=== PATIENT | female | born 1940 | race Caucasian/White ===

== ENCOUNTER 2018-01-27 12:59 | Outpatient (CLI) | payer MEDICARE, OTHER | END 2018-01-27 13:00 | disposition home or self-care (01) | LOC: BICRAD 12:59 | PROVIDERS: ATTEND Internal Medicine | DX: M54.5 Low back pain (principal); M47.896 Other spondylosis, lumbar region; M41.86 Other forms of scoliosis, lumbar region | CPT/HCPCS: 72100 ==

== ENCOUNTER 2018-10-23 15:21 | Outpatient (CLI) | payer MEDICARE, OTHER ==
--- NOTE | 2018-10-23 16:45 | RAD ---
RADIOGRAPH RIGHT KNEE 3 VIEWS: 10/23/18 HISTORY: 78-year-old female with arthritis of the right knee. FINDINGS: No joint effusion or edema in Hoffa's fat pad. Chondrocalcinosis in the medial and lateral compartmen ts. Small calcification in the suprapatellar region. Joint spaces are maintained. No joint effusions identified. Minimal/mild osteophytosis at the patellofemoral compartment. No osteophytosis at the med ial and lateral compartments. No fracture or dislocation. IMPRESSION: 1. Chondrocalcinosis suggestive of CPPD. 2. Minimal/mild osteoarthrosis of the patellofemoral compartment. 3. Otherwise negative. POS: [facility]
--- NOTE | 2018-10-23 16:46 | RAD ---
FOUR VIEWS LEFT KNEE: 10/23/18 HISTORY: Left knee pain. AP, lateral, and both oblique views left knee obtained. Images demonstrate meniscal calcifications. There is some joint space narrowing seen in the medial an d lateral compartments of the left knee. No evidence of acute fractures or bony lesions seen. IMPRESSION: Joint space narrowing in the medial and lateral compartments of the left knee. No acute abnormality i s seen. POS: [facility]
--- NOTE | 2018-10-23 16:48 | RAD ---
RADIOGRAPH BILATERAL SACROILIAC JOINTS THREE VIEWS: 10/23/18 HISTORY: 78-year-old female with sacroiliitis, M46.1. FINDINGS: Bilateral SI joint spaces are maintained without erosions, sclerosis, or significant osteophytes. IMPRESSION: Negative. POS: [facility]
== END 2018-10-23 15:22 | disposition home or self-care (01) ==
LOC: BICRAD 15:21
PROVIDERS: ATTEND Internal Medicine
DX: M46.1 Sacroiliitis, not elsewhere classified (principal); M17.12 Unilateral primary osteoarthritis, left knee
CPT/HCPCS: 72202

== ENCOUNTER 2018-11-11 18:57 | Emergency (ER) | payer MEDICARE, OTHER ==
[2018-11-11] MEDS ORDERED: Cyclobenzaprine 10 MG TAB ONE (19:30)
== END 2018-11-11 20:21 | disposition home or self-care (01) ==
LOC: SCSER 18:57
DX: M25.552 Pain in left hip (principal); I10 Essential (primary) hypertension; Z79.82 Long term (current) use of aspirin; Z79.899 Other long term (current) drug therapy
CPT/HCPCS: 99283

== ENCOUNTER 2018-11-12 11:35 | Outpatient (CLI) | payer MEDICARE, OTHER ==
--- NOTE | 2018-11-12 12:17 | RAD ---
LUMBAR SPINE RADIOGRAPHS TWO VIEWS: Date: 11-12-18 Provided Clinical History: Sciatica. FINDINGS: Five non-rib bearing lumbar type vertebral bodies are present. There is right convexity scoliosis of the lumbar spine centered about L3. Vertebral body heights appear preserved. Multilevel disc and face t degenerative changes are seen. Disc space narrowing is most conspicuous at L2-3. Pedicles appear in tact. IMPRESSION: Lumbar scoliosis and multilevel degenerative change. POS: [facility]
== END 2018-11-12 11:36 | disposition home or self-care (01) ==
LOC: BICRAD 11:35
PROVIDERS: ATTEND Internal Medicine
DX: M54.32 Sciatica, left side (principal); M47.816 Spondylosis without myelopathy or radiculopathy, lumbar region; M41.9 Scoliosis, unspecified
CPT/HCPCS: 72100

== ENCOUNTER 2018-11-21 13:54 | Outpatient (CLI) | payer MEDICARE, OTHER ==
--- NOTE | 2018-11-21 15:40 | MRI ---
MRI LUMBAR SPINE WITHOUT CONTRAST 11/21/18 Multiplanar and multisequential imaging lumbar spine obtained. INDICATIONS: Lumbar sciatica to the left side. History of breast cancer. FINDINGS: There are moderate degenerative changes of the lumbar spine noted. Prominent osteophytes are seen ant erolaterally from the lumbar vertebrae. Degenerative disc changes are at all levels. Loss of disc spa ce most prominent at L1-2 and L2-3. Degenerative signal changes are seen in the vertebrae at L 2, L3, L 4 and L5 with edema seen consistent with degenerative change. No evidence of metastasis. Vertebral body height is maintained. There is mild posterolisthesis at L2-3 and L3-4. At L1-2 level, there is a broad based disc bulge flattening the thecal sac. Mild to moderate facet hy pertrophy. Mild central canal stenosis. Bilateral foraminal encroachment due to diffuse disc bulge an d facet hypertrophy. At L2-3, mild posterolisthesis as noted above. Diffuse disc bulge. Facet arthrosis and hypertrophy. M ild to moderate central canal stenosis. Bilateral foraminal stenosis. At L3-4, slight posterolisthesis. An annular fissure with a diffuse disc bulge. Facet arthrosis and h ypertrophy. Mild to moderate central canal stenosis. Bilateral foraminal stenosis. At L4-5, mild diffuse disc bulge. Moderate facet and ligamentous hypertrophy. Mild to moderate centra l canal stenosis. Mild bilateral foraminal encroachment and narrowing. At L5-S1, no significant disc bulge. There is pronounced facet hypertrophy and arthrosis. There are small synovial cysts projecting posteriorly from the facet joints measuring up to 7 mm on the left. There are also small synovial cysts seen anteriorly projecting into the foramina on both sides measur ing 6 mm. These synovial cysts impinge on both the exiting L5 nerve roots. IMPRESSION: 1. Multilevel degenerative disc changes as described above. Bilateral synovial cysts are seen at L5-S1 encroaching into both foramina and impinging on both exiting L5 nerve roots as noted above. 2. Central canal stenosis at multiple levels of the lumbar spine probably most pronounced at L2- 3 and L3-4. See description at each level above. POS: [facility]
--- NOTE | 2018-11-21 16:22 | RAD ---
2 VIEWS LUMBAR SPINE: Date: 11/21/18 COMPARISON: 11/12/18. HISTORY: Left-sided sciatica. FINDINGS: Stable appearance of the lumbar spine. No significant interval change. Stable rightward curvature of the lumbar spine with stable loss of disc space height. IMPRESSION: No significant interval change. POS: [facility]
== END 2018-11-21 13:55 | disposition home or self-care (01) ==
LOC: TBSIIMAG 13:54
PROVIDERS: ATTEND Internal Medicine
DX: M54.32 Sciatica, left side (principal); M48.061 Spinal stenosis, lumbar region without neurogenic claudication; M51.36 Other intervertebral disc degeneration, lumbar region; M71.38 Other bursal cyst, other site
CPT/HCPCS: 72100; 72148

== ENCOUNTER 2019-08-03 16:16 | Outpatient (CLI) | payer MEDICARE, OTHER ==
--- NOTE | 2019-08-03 17:02 | RAD ---
CHEST TWO VIEWS: History: Chronic cough for months. FINDINGS: Hyperinflation and chronic lung changes. Anterior wedging of several thoracic vertebral bodies which appear to be fused or partially fused. Minimal patchy parenchymal changes in the region of the lingul a concerning for pneumonia. Mild biapical pleural thickening. No significant pleural effusion or card iomegaly. IMPRESSION: 1. Patchy parenchymal changes in the region of the lingula, evidence for pneumonia. Consider treatmen t and short term follow up for clearing. 2. Hyperinflation and chronic lung changes. Old appearing vertebral body height loss and some fusion changes of the mid thoracic vertebral column. Code T POS: [facility]
== END 2019-08-03 16:17 | disposition home or self-care (01) ==
LOC: SCSRAD 16:16
PROVIDERS: ATTEND Internal Medicine
DX: R05 Cough (principal); J18.9 Pneumonia, unspecified organism; J98.4 Other disorders of lung
CPT/HCPCS: 71046

== ENCOUNTER 2019-08-10 12:01 | Outpatient (CLI) | payer MEDICARE, OTHER ==
--- NOTE | 2019-08-10 12:51 | RAD ---
CHEST PA AND LATERAL: HISTORY: Cough . COMPARISON: 08/03/2019. FINDINGS: Heart: Normal cardiac silhouette. Aorta: Unremarkable. Pulmonary vessels: Normal. Costophrenic angles: Costophrenic angles are clear. Lungs: Persistent opacification in the left lower lobe. Lungs continue to be hyperinflated. Chronic c hanges are noted. Pneumothorax: No pneumothorax. Osseous structures: Stable kyphosis due to compression fracture of the mid to distal thoracic spine. IMPRESSION: No significant interval change. Transcribed Date/Time: 08/10/2019 12:55 PM
== END 2019-08-10 12:02 | disposition home or self-care (01) ==
LOC: SCSRAD 12:01
PROVIDERS: ATTEND Internal Medicine
DX: R05 Cough (principal)
CPT/HCPCS: 71046

== ENCOUNTER 2019-08-18 10:18 | Outpatient (CLI) | payer MEDICARE, OTHER ==
--- NOTE | 2019-08-18 11:19 | CT ---
CT CHEST WITHOUT CONTRAST: HISTORY: Breast cancer. Abnormal chest radiograph. COMPARISON: None. CORRELATION: Chest radiographs from 08/10/2019 and 08/03/2019. FINDINGS: Mediastinum: Limited evaluation due to the lack of intravenous contrast. There is a 1.1 x 5.8 cm nons pecific paratracheal lymph node. There is a 0.8 x 0.8 cm precarinal lymph node with small punctate calcification. No obvious mediastinal masses, hematoma or lymphadenopathy. Heart: No significant pericardial fluid. No cardiomegaly. No significant coronary artery calcificatio ns. Aorta: No significant atherosclerotic disease. No evidence of aneurysmal dilatation. Upper abdomen: The visualized upper solid organs are grossly unremarkable. Mild to moderate hiatal he rnia is noted. Osseous structures: At T8-T9, there appears to be a compression fracture with chronic fusion of the v ertebral bodies and posterior elements. A component of incomplete segmentation cannot be excluded. Associated kyphosis. There are no lytic or blastic lesions. There is mild leftward curvature of the u pper lumbar spine. Trachea and central bronchi: Patent. Pleural spaces: No pleural effusion. Pneumothorax: None. Lungs: Hyperinflation. Right lung: Patchy irregular opacities involving the superior segment of the right lower lobe. No seth picious masses or nodule. Left lung: There is scarring and/or atelectasis in lingula. No suspicious masses or consolidation. Mi nimal patchy nonspecific ground glass opacity in the posterior left lower lobe. Minimal scarring of the posterior left upper lobe, adjacent to the major fissure. IMPRESSION: 1. There is no suspicious correlate with the findings on the previous chest radiograph. Focal opacity in the left lung compatible with areas of scar and/or atelectasis. 2. Hyperinflation. 3. Patchy nonspecific ground glass opacities in the lung parenchyma as described above. Correlate for atypical infection versus edema. 4. Additional findings as above. Transcribed Date/Time: 08/18/2019 11:50 AM
== END 2019-08-18 10:19 | disposition home or self-care (01) ==
LOC: SCSCT 10:18
PROVIDERS: ATTEND Internal Medicine
DX: R93.89 Abnormal findings on diagnostic imaging of other specified body structures (principal); R91.8 Other nonspecific abnormal finding of lung field
CPT/HCPCS: 71250

== ENCOUNTER 2019-10-15 10:19 | Outpatient (CLI) | payer MEDICARE, OTHER ==
--- NOTE | 2019-10-15 10:53 | RAD ---
EXAM: Chest PA and lateral: HISTORY: Dyspnea COMPARISON: 08/10/2019 FINDINGS: Heart: Normal cardiac silhouette Aorta: Unremarkable Pulmonary vessels: Normal Costophrenic angles: Costophrenic angles are clear. Lungs: No consolidation or masses. Hyperinflation is once again demonstrated. Pneumothorax: No pneumothorax Osseous structures: Kyphosis due to remote compression fracture at the mid thoracic spine. There is d iffuse bone demineralization. IMPRESSION: No significant interval change.
== END 2019-10-15 10:20 | disposition home or self-care (01) ==
LOC: RAD 10:19
PROVIDERS: ATTEND Internal Medicine Pulmonary Disease
DX: R06.00 Dyspnea, unspecified (principal)
CPT/HCPCS: 71046

== ENCOUNTER 2021-11-27 15:38 | Outpatient (CLI) | payer MEDICARE, OTHER | END 2021-11-27 15:39 | disposition home or self-care (01) | LOC: SCSRAD 15:38 | PROVIDERS: ATTEND Internal Medicine | DX: M25.512 Pain in left shoulder (principal); M25.522 Pain in left elbow ==

== ENCOUNTER 2022-02-13 13:32 | Outpatient (CLI) | payer MEDICARE, OTHER | END 2022-02-13 13:33 | disposition home or self-care (01) | LOC: RAD 13:32 | PROVIDERS: ATTEND Internal Medicine | DX: R06.00 Dyspnea, unspecified (principal) | CPT/HCPCS: 71046 ==

== ENCOUNTER 2022-10-02 11:19 | Outpatient (CLI) | payer MEDICARE, OTHER | END 2022-10-02 11:20 | disposition home or self-care (01) | LOC: SCSRAD 11:19 | PROVIDERS: ATTEND Internal Medicine | DX: R61 Generalized hyperhidrosis (principal) | CPT/HCPCS: 71046; U0003; U0005 ==

== ENCOUNTER 2023-03-04 14:43 | Outpatient (CLI) | payer MEDICARE, OTHER | END 2023-03-04 14:44 | disposition home or self-care (01) | LOC: RAD 14:43 | PROVIDERS: ATTEND Internal Medicine | DX: R06.00 Dyspnea, unspecified (principal) | CPT/HCPCS: 71046 ==